=== PATIENT | male | born 1945 | race Caucasian/White ===

== ENCOUNTER 2019-02-26 18:52 | Emergency (ER) | payer OTHER ==
--- NOTE | 2019-02-26 18:54 | ER Report ---
History and Physical Time Seen By MD: 18:49 HPI/ROS CHIEF COMPLAINT: Chest pain HISTORY OF PRESENT ILLNESS: 73-year-old male presents ambulatory to the ER complaining of sudden severe substernal chest pain. He notes onset approximately 20 minutes prior to arrival. He describes 9/10 pain without radiation. He denies shortness of breath, nausea or diaphoresis. His history is significant for coronary artery bypass grafting [address] Grewal at [facility]. He did take one sublingual nitroglycerin without improvement of his pain. Patient notes no exacerbating or alleviating factors. REVIEW OF SYSTEMS: Respiratory: No cough, no dyspnea. Cardiovascular: No chest pain, no palpitations. Gastrointestinal: No vomiting, no abdominal pain. Musculoskeletal: No back pain. Allergies: Coded Allergies: No Known Drug Allergies (Unverified , 02/26/19) Home Meds Active Scripts Hydrocodone Bit/Acetaminophen (NORCO 5-325 TABLET) 1 Each Tablet, 1 EACH PO Q4H PRN for PAIN, #12 Prov:SANDYEUGENE DO 02/17/15 Cephalexin (KEFLEX) 500 Mg Capsule, 500 MG PO TID for prevention of facial infection, #30 CAP Prov:EUGENE DELGADO Logan DO 02/17/15 Reported Medications Fluoxetine Hcl (PROZAC) 20 Mg Capsule, 20 MG PO QDAY, CAPSULE 02/17/15 Simvastatin (SIMVASTATIN) 20 Mg Tablet, 20 MG PO HS, TAB 02/17/15 Omeprazole (OMEPRAZOLE) 20 Mg Capsule.dr, 1 CAP PO QDAY, CAP 02/17/15 Hydrochlorothiazide (HYDROCHLOROTHIAZIDE) 25 Mg Tablet, 1 TAB PO QDAY, TAB 02/17/15 Carvedilol (CARVEDILOL) 12.5 Mg Tablet, 12.5 MG PO BID, #10 TAB 02/17/15 Aspirin (ASPIR 81) 81 Mg Tablet.dr, 81 MG PO QDAY, TAB 02/17/15 Amitriptyline Hcl (AMITRIPTYLINE HCL) 50 Mg Tablet, 50 MG PO QHS, #5 TAB 02/17/15 Reviewed Nurses Notes: Yes Old Medical Records Reviewed: Yes Hx Smoking: No Smoking Status: Never Smoker Hx Substance Use Disorder: No Hx Alcohol Use: Yes (infrequent) Constitutional Vital Sign - Last 24 Hours 02/26/19 02/26/19 18:59 19:12 Temp 97.5 Pulse 77 Resp 17 B/P (MAP) 140/80 Pulse Ox 92 O2 Delivery Room Air O2 Flow Rate 2.0 Physical Exam General Appearance: The patient is alert, has no immediate need for airway protection and no current signs of toxicity. Vital signs stable, afebrile, pulse ox normal, skin slightly pale-appearing, dry, warm Eyes: Pupils equal and round no injection. Respiratory: Chest is non tender, lungs are clear to auscultation. Cardiac: regular rate and rhythm, no murmur, well-healed midline surgical scar with keloid Gastrointestinal: Abdomen is soft and non tender, no masses, bowel sounds normal. Musculoskeletal: Neck: Neck is supple and non tender. No JVD Extremities have full range of motion and are non tender. No leg swelling or tenderness Skin: No rashes or lesions. DIFFERENTIAL DIAGNOSIS: After history and physical exam differential diagnosis was considered forchest pain including but not limited to myocardial ischemia, pericarditis pulmonary embolus, chest wall pain, pleural inflammation and pulmonary infectious causes. Medical Decision Making Data Points Result Diagram: 02/26/19 1900 02/26/19 1900 Laboratory Hematology Test 02/26/19 19:00 White Blood Count 5.6 k/uL (4.5-11.0) Red Blood Count 5.09 M/uL (4.00-5.60) Hemoglobin 15.9 g/dL (14.0-18.0) Hematocrit 45.9 % (42.0-52.0) Mean Corpuscular Volume 90.1 fL (80.0-96.0) Mean Corpuscular Hemoglobin 31.1 pg (26.0-33.0) Mean Corpuscular Hemoglobin Concent 34.6 g/dL (32.0-36.0) Red Cell Distribution Width 13.3 % (11.5-14.5) Platelet Count 196 K/uL (150-450) Mean Platelet Volume 8.9 fL (7.2-11.1) Neutrophils (%) (Auto) 62.5 % (39.4-72.5) Lymphocytes (%) (Auto) 26.2 % (17.6-49.6) Monocytes (%) (Auto) 7.8 % (4.1-12.4) Eosinophils (%) (Auto) 2.5 % (0.4-6.7) Basophils (%) (Auto) 1.0 % (0.3-1.4) Nucleated RBC Relative Count (auto) 0.1 /100WBC Neutrophils # (Auto) 3.5 K/uL (2.0-7.4) Lymphocytes # (Auto) 1.5 K/uL (1.3-3.6) Monocytes # (Auto) 0.4 K/uL (0.3-1.0) Eosinophils # (Auto) 0.1 K/uL (0.0-0.5) Basophils # (Auto) 0.1 K/uL (0.0-0.1) Nucleated RBC Absolute Count (auto) 0.00 K/uL Chemistry Test 02/26/19 19:00 Sodium Level 136 mmol/L (137-145) Potassium Level 4.0 mmol/L (3.5-5.0) Chloride Level 101 mmol/L (98-107) Carbon Dioxide Level 25 mmol/L (22-30) Blood Urea Nitrogen 22 mg/dl (9-21) Creatinine 1.30 mg/dl (0.66-1.25) Glomerular Filtration Rate Calc 54.1 Random Glucose 91 mg/dl (75-110) Calcium Level 9.4 mg/dl (8.4-10.2) Total Bilirubin 0.6 mg/dl (0.2-1.3) Aspartate Amino Transf (AST/SGOT) 26 U/L (0-35) Alanine Aminotransferase (ALT/SGPT) 38 U/L (0-56) Alkaline Phosphatase 82 U/L (0-126) Troponin I < 0.012 ng/ml B-Type Natriuretic Peptide < 5 pg/ml (0-100) Total Protein 7.6 g/dl (6.3-8.2) Albumin 4.4 g/dl (3.5-5.0) Coagulation Test 02/26/19 19:00 Prothrombin Time 13.6 seconds (12.0-14.4) Prothromb Time International Ratio 1.04 Activated Partial Thromboplast Time 32 seconds (23-35) D-Dimer Quantitative (PE/DVT) < 0.27 ug/ml (0-0.50) EKG/Imaging EKG Interpretation 12 lead EK Rhythm: Normal sinus rhythm [place]: normal QRS: normal ST segments: Acute inferior wall ST elevation of 2-3 mm in 2, 3, aVF with reciprocal ST depression in V1, V2 and V3, comparison to previous EKG exercise stress test. EKG from 08/25/13 this is a new finding Imaging X-ray: Single view portable chest x-ray was obtained. I viewed the images myself on the PACS system. My interpretation of the images is: Normal mediastinum, no infiltrate, no effusion. The radiologist interpretation had no clinically significant variation from this interpretation. ED Course/Re-evaluation Clinical Indication for ER IV: Hydration, IV Access ED Course Patient was admitted to an examination room. H&P was done. The differential diagnoses was considered. On clinical examination. Patient complaining of severe substernal chest pain started approximately 20 minutes prior to arrival. He did not request without improvement. On arrival. His initial EKG shows ST elevation in the inferior leads 2, 3, aVF of approximately 2-3 mm with reciprocal changes in V1 through V3. Comparison to his previous EKG 08/25/13 was an exercise tread no testes were not present. Will proceed with rub lytic therapy and arrange air ambulance transport to [facility] where he had his previous CABG. Patient will receive TNKase. Protocol was followed. His pre-from lytic checklist was unremarkable. Patient agrees to consent for TNKase. 2 peripheral IVs were establishedand supple non-2. Chest x-ray shows no mediastinal widening. Patient was also treated with Plavix 300 mg by mouth. He was given full dose baby aspirin 324 mg. Heparin bolus of 4000 units and a drip at 12 units per hour per kilogram. Patient was given morphine 2 mg IV. He was beginning to feel better. Prior to departure. I entertained starting a nitroglycerin drip. His pressure was stable. Care was turned over to the flight crew nurse. Decision to Disposition Date: Feb 26, 2019 Decision to Disposition Time: 19:03 Critical Care Time I spent a total of 60 minutes of critical care time in obtaining history, performing a physical exam, bedside monitoring of interventions, collecting and interpreting tests and discussion with consultants but not including time spent performing procedures. Depart Departure Latest Vital Signs Vital Signs Date Time Temp Pulse Resp B/P (MAP) Pulse Ox O2 Delivery O2 Flow Rate FiO2 02/26/19 19:12 2.0 02/26/19 18:59 97.5 77 17 140/80 92 Room Air Impression: Primary Impression: Acute [place], inferior wall Condition: Improved Disposition: XFER TO [facility]UTE [facility] Referrals: TORRI FELIZ (PCP) EUGENE DELGADO DO Feb 26, 2019 18:54
[2019-02-26] MEDS ORDERED: ASPIRIN 81 MG CHEW PO ONE (19:00)
[2019-02-26] MEDS ORDERED: STEMI KIT(*) 1 EA ONE (19:03)
[2019-02-26] MEDS ORDERED: NS(*) 0.9% 1000 ML BAG 1,000 ML IV ONE ×2 (19:10)
[2019-02-26 19:13] LABS: PLATELET COUNT, AUTOMATED 196 K/uL (150-450)
[2019-02-26] MEDS ORDERED: CLOPIDOGREL BISULFATE 75MG TAB PO ONE (19:15)
[2019-02-26] MEDS ORDERED: TENECTEPLASE 50 MG KIT IVP ONE (19:15)
[2019-02-26 19:20] VITALS: BP 127/81
[2019-02-26] MEDS ORDERED: MORPHINE 2 MG/ML SYR IVP ONE ×2 (19:25)
[2019-02-26 19:31] LABS: INR 1.04
--- NOTE | 2019-02-26 19:38 | EKG ---
FACILITY: [facility] PATIENT NAME: CARYL BRYAN : [id number] MR: [id number] V: [id number] EXAM DATE: ORDERING PHYSICIAN: EUGENE DELGADO TECHNOLOGIST: HANNY Test Reason : CP Blood Pressure : / mmHG Vent. Rate : 075 BPM Atrial Rate : 075 BPM P-R Int : 192 ms QRS Dur : 088 ms QT Int : 374 ms P-R-T Axes : 007 068 074 degrees QTc Int : 417 ms Normal sinus rhythm ST elevation, consider inferior injury or acute infarct ACUTE [place] Abnormal ECG When compared with ECG of 23-JUN-2013 11:56, Significant changes have occurred Confirmed by Ronald Villarreal ([id number]) on 02/26/2019 9:05:18 PM Referred By: SANDY Confirmed By:Ronald Voss
--- NOTE | 2019-02-26 19:49 | RADIOLOGY IMAGING REPORT ---
FACILITY: [facility] [place] PATIENT NAME: Dileep Queen : 1945 MR: [id number] V: [id number] EXAM DATE: ORDERING PHYSICIAN: EUGENE DELGADO TECHNOLOGIST: Location: [facility] [place] Patient: Dileep Queen : 1945 Visit/Account:[id number] Date of Sevice: 02/26/2019 EXAMINATION: Portable chest radiograph single view at 7:16 PM HISTORY: Chest pain. COMPARISON: 06/23/2013. FINDINGS: A single portable AP view of the chest is obtained. Lines/tubes: Sternal wires and mediastinal surgical clips. ECG leads overlie the chest. Lungs/pleura: No focal consolidation or pleural effusion. No evidence of pneumothorax. Pulmonary vas cularity is within normal limits. Heart: Normal heart size. Mediastinum: Stable mediastinal contours. Bony structures/body wall: Bilateral shoulder arthroplasties. IMPRESSION: No radiographic evidence of acute cardiopulmonary disease. Report Dictated By: Kade Redmond MD at 02/26/2019 7:38 PM Report E-Signed By: Kade Redmond MD at 02/26/2019 7:41 PM WSN:[id number]
[2019-02-26] MEDS ORDERED: HEPARIN SOD/D5W 25000/250 ML 250 ML IV ONE (20:51)
[2019-02-26] MEDS ORDERED: HEPARIN (PORC) 5000 UN/ML VIAL IVP ONE (20:55)
[2019-02-26] MEDS ORDERED: HEPARIN SOD/D5W 25000/250 ML 250 ML IV SCH (21:00)
== END 2019-02-26 19:45 | disposition short-term general hospital (02) ==
LOC: ER 19:00
DX: I21.3 ST elevation (STEMI) myocardial infarction of unspecified site (principal)
CPT/HCPCS: 71045; 83880; 84484; 85025; 85379; 85610; 85730; 93005; 96365; 96366; 96375; 99291; J1644; J2270; J3101; J7030; 82040; 82247; 82310; 82374; 82435; 82565; 82947; 84075; 84132; 84155; 84295; 84450; 84460; 84520

== ENCOUNTER → 2019-02-26 | Outpatient (REF) ==
[~2019-02-26] MED LIST: AMIT-108 PO; ASPI-1471 PO; CARV12.578 PO; CEPH-13 PO; FLUO-202 PO; HYDR-2966 PO; HYDR-653 PO; OMEP-126 PO; SIMV-49 PO
== END ==
LOC: AMB 19:21
PROVIDERS: ATTEND Nurse Practitioner
DX: Z02.9 Encounter for administrative examinations, unspecified (principal)
CPT/HCPCS: A0425; A0428